=== PATIENT | female | born 1995 | race Caucasian/White ===

== ENCOUNTER 2019-11-16 08:51 | Inpatient (IN) | payer BC, OTHER ==
[2019-11-16] MEDS ORDERED: TERBUTALINE 1 MG/ML VIAL SQ PRN (09:18)
[2019-11-16] MEDS ORDERED: CARBOPROST TROMETHAMINE 250 MCG/ML 1 ML AMP IM PRN (09:18)
[2019-11-16] MEDS ORDERED: OXYTOCIN 10 UNIT/ML 1 ML VIAL IM PRN (09:18)
[2019-11-16] MEDS ORDERED: METHYLERGONOVINE 0.2 MG/ML 1 ML AMP IM PRN (09:18)
[2019-11-16] MEDS ORDERED: LIDOCAINE 0.5% (PF) 5 MG/ML (50 ML SDV) SQ PRN (09:18)
[2019-11-16] MEDS ORDERED: OXYTOCIN 30 UNITS/500 ML NS 30 UNIT in SALINE 1 500ML.BAG IV SCH (09:30)
[2019-11-16] MEDS: LACTATED RINGERS 1,000 ML IV SCH ×3 (09:41→18:21)
[2019-11-16 10:01] LABS: Basophils % (A) 0 %; Eosinophils # (A) 0.2 k/uL (0-0.7); Eosinophils % (A) 2 %; HCT 38.8 % (34.0-46.0); HGB 12.9 gm/dL (11.4-16.0); Lymphocytes # (A) 1.7 k/uL (1.0-4.8); Lymphocytes % (A) 18 %; MCH 29.7 pg (25.0-35.0); MCHC 33.2 g/dL (31.0-37.0); MCV 89.6 fL (80.0-100.0); Mean Platelet Volume 9.2; Monocytes # (A) 0.5 k/uL (0-1.0); Monocytes % (A) 5 %; Neutrophils # (A) 6.9 k/uL (1.3-7.7); Neutrophils % (A) 73 %; Platelet Count 168 k/uL (150-450); RBC 4.33 m/uL (3.80-5.40); RDW 13.7 % (11.5-15.5); WBC 9.4 k/uL (3.8-10.6)
[2019-11-16 10:10] LABS: Uric Acid 5.8 mg/dL (3.7-7.4)
[2019-11-16] MEDS ORDERED: BUTORPHANOL 1 MG/ML 1 ML VIAL IV PRN (10:25)
[2019-11-16] MEDS ORDERED: ROPIVACAINE 100 MG, fentaNYL (PF) 200 MCG in SODIUM CHLORIDE 0.9% 76 ML EPIDURAL ONE (12:08)
--- NOTE | 2019-11-16 13:28 | P.HPOB ---
History of Present Illness H&P Date: 11/16/19 Chief Complaint: My water broke at 5:00 this morning This is a 24-year-old female 1 para 0 EDC 11/13/2019 at 40-3/7 weeks' gestation. Patient states her water broke this morning at approximately 0500 hrs. Only mild irregular uterine contractions to follow. Fetus is been active throughout the . Social history patient is single, father of the baby is involved in the . She is a formerly draped, none with . She denies alcohol or drug use. Family history significant for bipolar disorder, diabetes, hypercholesterolemia and anxiety. ALLERGIES include amoxicillin to which reports an unknown reaction as an infant. Current medications vitamins daily. Surgical history is unremarkable. Past medical history significant for hypothyroidism and asthma, exercise- induced. history blood type is A+, rubella status immune. VDRL testing, hepatitis B surface antigen, HIV testing, urine culture, rupee strep cultures all negative. One-hour Glucola 99. Urine culture is positive for E. coli, treated with antibiotics and repeat culture negative. On exam she is 5 foot 7 inches, 241 pounds, blood pressure on admission 140s over 90s, now 100/50 after epidural. General physical exam is within normal limits. Membranes are obviously ruptured with thin meconium-stained fluid. Cervix is 4 cm dilated, 70% effaced, -2 station, vertex presentation. heart rate is consistent with reactive NST, baseline 140. Impression: 40-3/7 weeks intrauterine , early spontaneous labor. Thin meconium-stained fluid. All signs otherwise reassuring. Initial blood pressure high, with normalization noted. Normal labs. Plan: Continue oxytocin augmentation per hospital protocol. Continue close maternal and surveillance. Epidural placed per patient's request. Anticipate normal spontaneous vaginal delivery. Review of Systems Constitutional: Reports as per HPI Past Medical History Past Medical History: Asthma, Thyroid Disorder History of Any Multi-Drug Resistant Organisms: None Reported Past Surgical History: No Surgical Hx Reported Past Anesthesia/Blood Transfusion Reactions: No Reported Reaction Past Psychological History: Anxiety Smoking Status: Never smoker Past Alcohol Use History: None Reported Past Drug Use History: None Reported - Past Family History Mother Additional Family Medical History / Comment(s): bipolar, heart skips beat Father History Unknown: Yes Family Medical History: Hypertension Medications and Allergies Home Medications Medication Instructions Recorded Confirmed Type Levothyroxine Sodium [Synthroid] 25 mcg PO DAILY 11/16/19 11/16/19 History Pnv No.95/Ferrous Fum/Folic AC 1 each PO DAILY 11/16/19 11/16/19 History [ Multivitamin Tablet] Allergies Allergy/AdvReac Type Severity Reaction Status Date / Time No Known Allergies Allergy Verified 11/16/19 09:03 Exam Vital Signs Temp Pulse Resp BP 11/16/19 09:43 96.0 F L 93 18 143/92 11/16/19 09:20 96.0 F L 93 18 143/92 Intake and Output 11/15/19 11/16/19 11/16/19 22:59 06:59 14:59 Output Total 150 Balance -150 Output: Urine 150 Straight 150 Other: Weight 109.316 kg See dictation under HPI please Results Result Diagrams: 11/16/19 09:45 Assessment and Plan Assessment: 40-3/7 weeks intrauterine , early spontaneous labor. Thin meconium- stained fluid. All signs reassuring. Plan: Continue oxytocin augmentation per hospital protocol. Continue close maternal and surveillance. Anticipate normal spontaneous vaginal delivery. Time with Patient: Less than 30
[2019-11-16 13:36] LABS: Amorphous Sediment,Urine Rare /hpf; Appearance,Urine Cloudy (Clear); Bilirubin,Urine Negative (Negative); Blood,Urine Negative (Negative); Color,Urine Yellow; Glucose,Urine (UA) Negative (Negative); Ketones,Urine 1+ (Negative); Leukocyte Esterase,Urine Negative (Negative); Mucus,Urine Occasional /hpf; Nitrite,Urine Negative (Negative); PH, Urine 6.5 (5.0-8.0); Protein,Urine Trace (Negative); RBC,Urine 1 /hpf (0-5); Specific Gravity,Urine 1.025 (1.001-1.035); Squamous Epithelial Cell,Urine <1 /hpf (0-4); Urobilinogen,Urine <2.0 mg/dL (<2.0); WBC,Urine 4 /hpf (0-5)
[2019-11-16] MEDS ORDERED: PENICILLIN G POTASSIUM 5,000,000 UNIT in DEXTROSE 5% IN WATER 100 ML IVPB STA ×2 (18:07)
[2019-11-16] MEDS ORDERED: LANOLIN CREAM 5 GM TUBE TOPICAL PRN (19:47)
[2019-11-16] MEDS ORDERED: ACETAMINOPHEN TAB 325 MG TAB PO PRN (19:47)
[2019-11-16] MEDS ORDERED: WITCH HAZEL 1 EACH MED..PAD TOPICAL PRN (19:47)
[2019-11-16] MEDS ORDERED: HYDROCORTISONE 2.5% RECTAL CREAM 30 GM TUBE RECTAL PRN (19:47)
[2019-11-16] MEDS ORDERED: BENZOCAINE/MENTHOL SPRAY 1 GM/SPRAY AEROSOL TOPICAL PRN (19:47)
[2019-11-16] MEDS ORDERED: diphenhydrAMINE ELIXIR 25 MG/10 ML CUP PO PRN (19:47)
[2019-11-16] MEDS ORDERED: diphenhydrAMINE 25 MG CAP PO PRN (19:47)
[2019-11-16] MEDS ORDERED: SIMETHICONE 80 MG CHEWABLE PO PRN (19:47)
[2019-11-16] MEDS ORDERED: ZOLPIDEM 5 MG TAB PO PRN (19:47)
[2019-11-16] MEDS ORDERED: diphenhydrAMINE 50 MG/ML 1 ML VIAL IVP PRN ×2 (19:47)
[2019-11-16] MEDS ORDERED: diphenhydrAMINE 50 MG CAP PO PRN (19:47)
[2019-11-16] MEDS ORDERED: IBUPROFEN 600 MG TAB PO PRN (19:47)
--- NOTE | 2019-11-16 19:47 | P.PROBDLV ---
Vaginal Delivery Note - . Vaginal Delivery Note: This is a 24-year-old white female 1 para 0 EDC 11/13/2019 40-3/7 weeks' gestation. Patient presented with spontaneous amniorrhexis which occurred at home, light meconium-stained fluid. Fetus is been active throughout the . Please see dictated history and physical for details. Oxytocin augmentation was started and titrated per hospital protocol. Epidural was placed per her request. She went on to progress through the first stage of labor and became completely dilated at 1912 hrs. She began the second stage of labor at that time. heart rate was reassuring throughout the entire first and second stages of labor. Perineal body was prepped and draped in the usual sterile fashion. Infant's head delivered occiput anterior and she restituted accordingly. There was a nuchal cord 1 that was reduced on the perineal body. The left or anterior shoulder was gently delivered from underneath the pubic symphysis at which time the oropharynx, nasopharynx, and external nares were all bulb suctioned on the perineal body. Patient was officially delivered of a liveborn female infant at 1924 hours. Umbilical cord was doubly clamped and ligated, she was handed to waiting nurses for evaluation where scores of 9 and 9 at one and 5 minutes respectively were given. Infant weighed 7 lbs. 11 oz. or 3485 g. The placenta delivered spontaneously with active management, it was inspected and noted to be intact with trivascular cord at 1927 hours. The uterus is massaged. Careful inspection of the cervix, vagina, perineum, periurethral, and perirectal areas revealed a small midline first-degree laceration. This was repaired in the usual fashion using 3-0 Vicryl suture. All sponge needle and instrument counts are correct at the end of the procedure. Estimated blood loss 350 mL's. Patient and her family were allowed to begin the bonding experience in the LDR.
[2019-11-16] MEDS ORDERED: OXYTOCIN 20 UNITS/1000 ML NS 1,000 ML IV SCH (20:00)
[2019-11-16] MEDS ORDERED: PENICILLIN G POTASSIUM 2,500,000 UNIT in DEXTROSE 5% IN WATER 100 ML IVPB SCH ×2 (22:08)
[2019-11-17] MEDS: SENNOSIDES-DOCUSATE SODIUM 1 EACH TAB PO SCH ×2 (05:35→08:16)
--- NOTE | 2019-11-17 07:53 | P.DS ---
Providers Date of admission: 11/16/19 09:25 Expected date of discharge: 11/17/19 Attending physician: Teresita Simmons Primary care physician: Stated None Hospital Course: This is a 24-year-old female 1 para 0 EDC 11/13/2019 at 40-3/7 weeks' gestation. Patient presented to the hospital with spontaneous amniorrhexis which occurred at home, light meconium-stained fluid. is remarkable for blood type A positive, group B strep cultures negative, rubella status immune. Please see my dictated history and physical for details. Epidural was placed per patient's request. Oxytocin was started and titrated per hospital protocol. She went on to deliver vaginally a liveborn female infant with scores of 9 and 9 at one and 5 minutes respectively. weighed 7 lbs. 11 oz. or 3485 g. There was a small first-degree perineal laceration repaired easily. Estimated blood loss 350 mL's. There was a nuchal cord 1, please see my dictated delivery note for details. This morning the patient is doing well. She is voiding, ambulating and passing flatus without difficulty. Vital signs are stable and she is afebrile. Fundus is firm and in the midline, symmetric and 18 week size. Extremities are negative for edema. infant is doing well. Patient is judged to be in very good condition for discharge home later today. She will follow-up with me in the office in 6 weeks. I have reminded her no intercourse, tampons or douching. She will use [id number] Advil or Aleve, or Motrin as needed for pain. She will continue taking her vitamin daily. She will call with any fevers shakes or chills, foul smelling or copious lochia, with the passage of large blood clots, with any pain not alleviated by [id number] products, or indeed with any concerns. Breast-feeding is going well and she has a double electric breast pump at home. Valier will follow-up with lead net software developer as per recommendations. Briefly reviewed contraceptive options and we will discuss this further in the office as appropriate. Patient Condition at Discharge: Good Plan - Discharge Summary Discharge Rx Participant: No New Discharge Prescriptions: No Action Pnv No.95/Ferrous Fum/Folic AC [ Multivitamin Tablet] 1 each PO DAILY Levothyroxine Sodium [Synthroid] 25 mcg PO DAILY Discharge Medication List Levothyroxine Sodium [Synthroid] 25 mcg PO DAILY 11/16/19 [History] Pnv No.95/Ferrous Fum/Folic AC [ Multivitamin Tablet] 1 each PO DAILY 11/16/19 [History] Follow up Appointment(s)/Referral(s): Teresita Simmons MD [STAFF PHYSICIAN] - 6 Weeks
--- NOTE | 2019-11-17 08:05 | P.MSEPDOC ---
Presenting Problems - Arrival Data Date of Arrival on Unit: 11/16/19 Time of Arrival on Unit: 09:11 Mode of Transport: Ambulatory - Complaint OB-Reason for Admission/Chief Complaint: Rule Out SROM Comment: pt states had SROM around 0500 this am, has thick mec Medical History - Information : 1 Para: 0 Term: 0 : 0 Abortions: Spontaneous or Elective: 0 Number of Living Children: 0 - Gestational Age Gestational Age by SUSAN (wks/days): 40 Weeks and 3 Days Review of Systems - Review of Systems Constitutional: No problems Breast: No problems ENT: No problems Cardiovascular: No problems Respiratory: No problems Gastrointestinal: No problems Genitourinary: No problems Musculoskeletal: No problems Neurological: No problems Skin: No problems Vital Signs - Temperature Temperature: 97.6 F Temperature Source: Oral - Pulse Right Brachial Pulse Rate: 91 Pulse Assessment Method: Automatic Cuff - Respirations Respiratory Rate: 16 Oxygen Delivery Method: Room Air - Blood Pressure Right Arm Blood Pressure: 121/80 Blood Pressure Mean: 93 Blood Pressure Source: Automatic Cuff Medical Screen Scoring (Pre) - Cervical Exam Dilation: 1-3 cm = 1 Effacement: More than 50% = 2 Membranes: Ruptured = 3 - Uterine Contractions Frequency: > or = 36 weeks =2 Duration: N/A Intensity: N/A - Maternal Vital Signs Maternal Temperature: N/A Maternal Blood Pressure: N/A Signs of Preeclampsia: N/A Maternal Respirations: N/A - Maternal Trauma Maternal Trauma: N/A - Assessment - Baby A Baseline FHR: 130 Heart Rate - NICHD Category: Category I (Normal) = 0 NST: Reactive Position: N/A Station: N/A - Total Score - Baby A Total Score - Baby A: 8 - Total Score - Baby B Total Score - Baby B: 8 - Total Score - Baby C Total Score - Baby C: 8 - Level of Risk - Baby A Level of Risk - Baby A: Medium (6-9) - Level of Risk - Baby B Level of Risk - Baby B: Medium (6-9) - Level of Risk - Baby C Level of Risk - Baby C: Medium (6-9) Physician Notification (Pre) - Physician Notified Physician Notified Date: 11/16/19 Physician Notified Time: 09:11 New Order Received: Yes - Notification Comment Comment: admit pt for labor Disposition - Disposition OB Disposition: Admit, LDRP Suite I agree with the RN Medical Screening Exam: Yes Risk & Benefit of care provided described in d/c instruction: Yes Diagnosis: LOUSE-BORNE TYPHUS
[2019-11-17 16:19] VITALS: BP 119/73; PULSE 75; RESP 17; TEMP 98.1
== END 2019-11-17 20:00 | disposition home or self-care (01) | DRG 807 ==
LOC: FBPOP 08:51 → 4FBP 09:25
PROVIDERS: ADMIT Obstetrics & Gynecology; ATTEND Obstetrics & Gynecology
PROC: 00HU33Z Insertion of Infusion Device into Spinal Canal, Percutaneous Approach (ICD-10-PCS; principal; 2019-11-16)
PROC: 0HQ9XZZ Repair Perineum Skin, External Approach (ICD-10-PCS; principal; 2019-11-16)
PROC: 10E0XZZ Delivery of Products of Conception, External Approach (ICD-10-PCS; principal; 2019-11-16)
PROC: 3E0R3BZ Introduction of Anesthetic Agent into Spinal Canal, Percutaneous Approach (ICD-10-PCS; principal; 2019-11-16)
DX: O77.0 Labor and delivery complicated by meconium in amniotic fluid (principal); Z37.0 Single live birth; O69.81X0 Labor and delivery complicated by cord around neck, without compression, not applicable or unspecified; E03.9 Hypothyroidism, unspecified; F41.9 Anxiety disorder, unspecified; J45.909 Unspecified asthma, uncomplicated; O70.0 First degree perineal laceration during delivery; O99.284 Endocrine, nutritional and metabolic diseases complicating childbirth; O99.344 Other mental disorders complicating childbirth; O99.52 Diseases of the respiratory system complicating childbirth; Z3A.40 40 weeks gestation of pregnancy; Z79.890 Hormone replacement therapy; Z82.49 Family history of ischemic heart disease and other diseases of the circulatory system; Z83.3 Family history of diabetes mellitus; Z88.0 Allergy status to penicillin
CPT/HCPCS: 59025; 81001; 84112; 84450; 84460; 84550; 85025; 86850; 86900; 86901; 99213

== ENCOUNTER 2020-01-26 14:55 | Emergency (ER) | payer OTHER ==
--- NOTE | 2020-01-26 15:55 | ED ---
General Adult HPI - General Chief complaint: Urogenital Stated complaint: Post bleeding Time Seen by Provider: 01/26/20 15:11 Source: patient, RN notes reviewed Mode of arrival: ambulatory Limitations: no limitations - History of Present Illness Initial comments: 24-year-old female currently 9 weeks presents to the emergency department for vaginal bleeding. Patient states that she started have heavy vaginal bleeding earlier today. States that she is using a tampon every half hour. States that she called her [employer] and could not get through to her so called the office and they said to go to the emergency room. Patient did have a normal period last week but states that this feels different. She denies abdominal pain. Denies fevers.Patient has no other complaints at this time including shortness of breath, chest pain, abdominal pain, nausea or vomiting, headache, or visual changes. - Related Data Home Medications Medication Instructions Recorded Confirmed Levothyroxine Sodium [Synthroid] 25 mcg PO HS 11/16/19 01/26/20 Pnv No.95/Ferrous Fum/Folic AC 1 tab PO HS 11/16/19 01/26/20 [ Multivitamin Tablet] Allergies Allergy/AdvReac Type Severity Reaction Status Date / Time No Known Allergies Allergy Verified 01/26/20 16:29 Review of Systems ROS Statement: Those systems with pertinent positive or pertinent negative responses have been documented in the HPI. ROS Other: All systems not noted in ROS Statement are negative. Past Medical History Past Medical History: Asthma, Thyroid Disorder History of Any Multi-Drug Resistant Organisms: None Reported Past Surgical History: No Surgical Hx Reported Past Anesthesia/Blood Transfusion Reactions: No Reported Reaction Past Psychological History: Anxiety Smoking Status: Never smoker Past Alcohol Use History: None Reported Past Drug Use History: None Reported - Past Family History Mother Additional Family Medical History / Comment(s): bipolar, heart skips beat Father History Unknown: Yes Family Medical History: Hypertension General Exam Limitations: no limitations General appearance: alert, in no apparent distress Head exam: Present: atraumatic, normocephalic, normal inspection Eye exam: Present: normal appearance, PERRL, EOMI. Absent: scleral icterus, conjunctival injection, periorbital swelling ENT exam: Present: normal exam, mucous membranes moist Neck exam: Present: normal inspection, full ROM. Absent: tenderness, meningismus, lymphadenopathy Respiratory exam: Present: normal lung sounds bilaterally. Absent: respiratory distress, wheezes, rales, rhonchi, stridor Cardiovascular Exam: Present: regular rate, normal rhythm, normal heart sounds. Absent: systolic murmur, diastolic murmur, rubs, gallop, clicks GI/Abdominal exam: Present: soft, normal bowel sounds. Absent: distended, tenderness, guarding, rebound, rigid External exam: Present: normal external exam. Absent: erythema, swelling, lesions, lacerations, ecchymosis Speculum exam: Present: vaginal bleeding (minimal vaginal bleeding present). Absent: normal speculum exam, erythema, vaginal discharge, cervical discharge, foreign body, tissue, laceration By manual exam: Present: normal by manual exam. Absent: cervical motion tenderness, adnexal tenderness, adnexal mass, uterine enlargement, uterine tenderness Neurological exam: Present: alert Psychiatric exam: Present: normal affect, normal mood Course Vital Signs 01/26/20 01/26/20 15:04 17:12 Temperature 99.1 F 98.4 F Pulse Rate 93 74 Respiratory 18 16 Rate Blood Pressure 136/91 129/81 O2 Sat by Pulse 99 100 Oximetry Medical Decision Making - Medical Decision Making Vital are stable. Patient is not tachycardic. Blood pressure is normal. CBC CMP is unremarkable. Hemoglobin stable. Urinalysis does show red blood cells. Ultrasound shows prominence of the endometrial canal, correlate with the menstrual stage. Obvious retained products are not identified. She is feeling well on reevaluation. She states bleeding has slowed significantly. Patient will follow up with her [employer]. However I did talk with her about strict return parameters which she is agreeable to.Patient has no other complaints at this time including shortness of breath, chest pain, abdominal pain, nausea or vomiting, headache, or visual changes. - Lab Data Result diagrams: 01/26/20 15:46 01/26/20 15:46 Lab Results 01/26/20 01/26/20 01/26/20 Range/Units 15:46 15:46 15:46 WBC 5.6 (3.8-10.6) k/uL RBC 4.51 (3.80-5.40) m/uL Hgb 13.5 (11.4-16.0) gm/dL Hct 40.8 (34.0-46.0) % MCV 90.3 (80.0-100.0) fL MCH 29.9 (25.0-35.0) pg MCHC 33.1 (31.0-37.0) g/dL RDW 13.1 (11.5-15.5) % Plt Count 220 (150-450) k/uL Neutrophils % 58 % Lymphocytes % 32 % Monocytes % 5 % Eosinophils % 3 % Basophils % 0 % Neutrophils # 3.2 (1.3-7.7) k/uL Lymphocytes # 1.8 (1.0-4.8) k/uL Monocytes # 0.3 (0-1.0) k/uL Eosinophils # 0.2 (0-0.7) k/uL Basophils # 0.0 (0-0.2) k/uL PT 9.7 (9.0-12.0) sec INR 0.9 (<1.2) APTT 25.3 (22.0-30.0) sec Sodium (137-145) mmol/L Potassium (3.5-5.1) mmol/L Chloride (98-107) mmol/L Carbon Dioxide (22-30) mmol/L Anion Gap mmol/L BUN (7-17) mg/dL Creatinine (0.52-1.04) mg/dL Est GFR (CKD-EPI)AfAm (>60 ml/min/1.73 sqM) Est GFR (CKD-EPI)NonAf (>60 ml/min/1.73 sqM) Glucose (74-99) mg/dL Calcium (8.4-10.2) mg/dL Total Bilirubin (0.2-1.3) mg/dL AST (14-36) U/L ALT (4-34) U/L Alkaline Phosphatase (38-126) U/L Total Protein (6.3-8.2) g/dL Albumin (3.5-5.0) g/dL Urine Color Yellow Urine Appearance Clear (Clear) Urine pH 6.5 (5.0-8.0) Ur Specific [place] 1.021 (1.001-1.035) Urine Protein Negative (Negative) Urine Glucose (UA) Negative (Negative) Urine Ketones Negative (Negative) Urine Blood Moderate H (Negative) Urine Nitrite Negative (Negative) Urine Bilirubin Negative (Negative) Urine Urobilinogen <2.0 (<2.0) mg/dL Ur Leukocyte Esterase Negative (Negative) Urine RBC >182 H (0-5) /hpf Urine WBC 1 (0-5) /hpf Ur Squamous Epith Cells <1 (0-4) /hpf Blood Type Blood Type Recheck Bld Type Recheck Status Antibody Screen Spec Expiration Date 01/26/20 01/26/20 Range/Units 15:46 15:46 WBC (3.8-10.6) k/uL RBC (3.80-5.40) m/uL Hgb (11.4-16.0) gm/dL Hct (34.0-46.0) % MCV (80.0-100.0) fL MCH (25.0-35.0) pg MCHC (31.0-37.0) g/dL RDW (11.5-15.5) % Plt Count (150-450) k/uL Neutrophils % % Lymphocytes % % Monocytes % % Eosinophils % % Basophils % % Neutrophils # (1.3-7.7) k/uL Lymphocytes # (1.0-4.8) k/uL Monocytes # (0-1.0) k/uL Eosinophils # (0-0.7) k/uL Basophils # (0-0.2) k/uL PT (9.0-12.0) sec INR (<1.2) APTT (22.0-30.0) sec Sodium 139 (137-145) mmol/L Potassium 4.0 (3.5-5.1) mmol/L Chloride 104 (98-107) mmol/L Carbon Dioxide 25 (22-30) mmol/L Anion Gap 10 mmol/L BUN 13 (7-17) mg/dL Creatinine 0.75 (0.52-1.04) mg/dL Est GFR (CKD-EPI)AfAm >90 (>60 ml/min/1.73 sqM) Est GFR (CKD-EPI)NonAf >90 (>60 ml/min/1.73 sqM) Glucose 93 (74-99) mg/dL Calcium 9.7 (8.4-10.2) mg/dL Total Bilirubin 0.5 (0.2-1.3) mg/dL AST 35 (14-36) U/L ALT 29 (4-34) U/L Alkaline Phosphatase 91 (38-126) U/L Total Protein 7.9 (6.3-8.2) g/dL Albumin 4.6 (3.5-5.0) g/dL Urine Color Urine Appearance (Clear) Urine pH (5.0-8.0) Ur Specific [place] (1.001-1.035) Urine Protein (Negative) Urine Glucose (UA) (Negative) Urine Ketones (Negative) Urine Blood (Negative) Urine Nitrite (Negative) Urine Bilirubin (Negative) Urine Urobilinogen (<2.0) mg/dL Ur Leukocyte Esterase (Negative) Urine RBC (0-5) /hpf Urine WBC (0-5) /hpf Ur Squamous Epith Cells (0-4) /hpf Blood Type A Positive Blood Type Recheck A Pos Bld Type Recheck Status No Antibody Screen NEGATIVE Spec Expiration Date 01/29/2020 - 2345 Disposition Clinical Impression: Vaginal bleeding Disposition: HOME SELF-CARE Condition: Good Instructions (If sedation given, give patient instructions): Dysfunctional Uterine Bleeding (ED) Additional Instructions: Please follow-up with your [employer] in 1-2 days. If you're having worsening symptoms such as lightheadedness return to the emergency department. If bleeding worsens return to the emergency department as well as any other symptoms. Is patient prescribed a controlled substance at d/c from ED?: No Referrals: Teresita Simmons MD [STAFF PHYSICIAN] - 1-2 days Time of Disposition: 17:28
[2020-01-26 16:00] LABS: Basophils % (A) 0 %; Eosinophils # (A) 0.2 k/uL (0-0.7); Eosinophils % (A) 3 %; HCT 40.8 % (34.0-46.0); HGB 13.5 gm/dL (11.4-16.0); Lymphocytes # (A) 1.8 k/uL (1.0-4.8); Lymphocytes % (A) 32 %; MCH 29.9 pg (25.0-35.0); MCHC 33.1 g/dL (31.0-37.0); MCV 90.3 fL (80.0-100.0); Mean Platelet Volume 8.5; Monocytes # (A) 0.3 k/uL (0-1.0); Monocytes % (A) 5 %; Neutrophils # (A) 3.2 k/uL (1.3-7.7); Neutrophils % (A) 58 %; Platelet Count 220 k/uL (150-450); RBC 4.51 m/uL (3.80-5.40); RDW 13.1 % (11.5-15.5); WBC 5.6 k/uL (3.8-10.6)
[2020-01-26 16:05] LABS: Appearance,Urine Clear (Clear); Bilirubin,Urine Negative (Negative); Blood,Urine Moderate (Negative); Color,Urine Yellow; Glucose,Urine (UA) Negative (Negative); Ketones,Urine Negative (Negative); Leukocyte Esterase,Urine Negative (Negative); Nitrite,Urine Negative (Negative); PH, Urine 6.5 (5.0-8.0); Protein,Urine Negative (Negative); RBC,Urine >182 /hpf (0-5); Specific Gravity,Urine 1.021 (1.001-1.035); Squamous Epithelial Cell,Urine <1 /hpf (0-4); Urobilinogen,Urine <2.0 mg/dL (<2.0); WBC,Urine 1 /hpf (0-5)
[2020-01-26 16:10] LABS: ALT 29 U/L (4-34); AST 35 U/L (14-36); African American GFR (CKD) >90 (>60 ml/min/1.73 sqM); Albumin 4.6 g/dL (3.5-5.0); Alkaline Phosphatase 91 U/L (38-126); Anion Gap 10 mmol/L; Blood Urea Nitrogen 13 mg/dL (7-17); Calcium 9.7 mg/dL (8.4-10.2); Carbon Dioxide 25 mmol/L (22-30); Chloride 104 mmol/L (98-107); Glucose 93 mg/dL (74-99); INR 0.9 (<1.2); Non-African American GFR(CKD) >90 (>60 ml/min/1.73 sqM); Partial Thromboplastin Time 25.3 sec (22.0-30.0); Prothrombin Time 9.7 sec (9.0-12.0); Sodium 139 mmol/L (137-145); Total Bilirubin 0.5 mg/dL (0.2-1.3); Total Protein 7.9 g/dL (6.3-8.2)
--- NOTE | 2020-01-26 16:37 | US ---
EXAMINATION TYPE: US transvaginal DATE OF EXAM: 01/26/2020 COMPARISON: NONE CLINICAL HISTORY: pain. Post - vaginal delivery 9 weeks ago. Menses ended 4 days ago, starting bleeding today. Rule out retained products TECHNIQUE: Transvaginal (TV). Date of LMP: 01/18/20 EXAM MEASUREMENTS: Uterus: 10.0 x 4.1 x 4.8 cm Endometrial Stripe: 1.1 cm Right Ovary: 3.4 x 1.6 x 1.7 cm Left Ovary: 3.3 x 2.2 x 1.4 cm 1. Uterus: Anteverted 2. Endometrium: appears thickened for menstrual stage, no evidence of retained products 3. Right Ovary: follicles noted 4. Left Ovary: follicles noted Spectral, color and waveform doppler imaging shows good arterial and venous flow within the ovaries ; there is no evidence for ovarian torsion. 5. Bilateral Adnexa: appears wnl 6. Posterior cul-de-sac: trace amount of free fluid IMPRESSION: 1. Prominence of the endometrial canal. Correlate with the menstrual stage. Obvious retained products are not identified.
[2020-01-26 17:12] VITALS: BP 129/81; PULSE 74; RESP 16; TEMP 98.4
== END 2020-01-26 17:58 | disposition home or self-care (01) ==
LOC: EC 14:55
DX: N93.9 Abnormal uterine and vaginal bleeding, unspecified (principal); E07.9 Disorder of thyroid, unspecified; Z79.890 Hormone replacement therapy
CPT/HCPCS: 36415; 76830; 80053; 81001; 85025; 85610; 85730; 86850; 86900; 86901; 93975; 99284

== ENCOUNTER 2020-04-30 15:51 | Emergency (ER) | payer OTHER ==
--- NOTE | 2020-04-30 16:47 | XR ---
EXAMINATION TYPE: XR chest 1V portable DATE OF EXAM: 04/30/2020 COMPARISON: NONE HISTORY: Pain TECHNIQUE: Single view FINDINGS: Heart and mediastinum are normal. Lungs are clear. Diaphragm is normal. Bony thorax appears normal. IMPRESSION: Normal chest.
[2020-04-30 16:51] LABS: Appearance,Urine Clear (Clear); Bilirubin,Urine Negative (Negative); Blood,Urine Moderate (Negative); Color,Urine Light Yellow; Glucose,Urine (UA) Negative (Negative); Ketones,Urine Negative (Negative); Leukocyte Esterase,Urine Negative (Negative); Mucus,Urine Rare /hpf; Nitrite,Urine Negative (Negative); PH, Urine 5.5 (5.0-8.0); Protein,Urine Negative (Negative); Specific Gravity,Urine 1.012 (1.001-1.035); Squamous Epithelial Cell,Urine 1 /hpf (0-4); Urobilinogen,Urine <2.0 mg/dL (<2.0); WBC,Urine 1 /hpf (0-5)
--- NOTE | 2020-04-30 17:00 | ED ---
General Adult HPI - General Chief complaint: Recheck/Abnormal Lab/Rx Stated complaint: near syncope Time Seen by Provider: 04/30/20 16:00 Source: patient, RN notes reviewed Mode of arrival: ambulatory Limitations: no limitations - History of Present Illness Initial comments: 24-year-old female with a past medical history of asthma, thyroid disorder pres ents to the emergency room for a chief complaint of medication refill. Patient reports she has been out of her Synthroid for about a month. Reports that today she started to get lightheaded while she was driving and feels that she needs her Synthroid refilled. She usually does this through urgent care but they are closed today. Patient states she feels fine at this time seems to be only when she is driving. Patient denies any chest pain or shortness of breath. Denies any fevers. Denies neck pain.Patient has no other complaints at this time including shortness of breath, chest pain, abdominal pain, nausea or vomiting, headache, or visual changes. - Related Data Home Medications Medication Instructions Recorded Confirmed Levothyroxine Sodium [Synthroid] 25 mcg PO DAILY 11/16/19 04/30/20 Pnv No.95/Ferrous Fum/Folic AC 1 tab PO HS 11/16/19 01/26/20 [ Multivitamin Tablet] Previous Rx's Medication Instructions Recorded Levothyroxine Sodium [Synthroid] 25 mcg PO DAILY #7 tab 04/30/20 Allergies Allergy/AdvReac Type Severity Reaction Status Date / Time No Known Allergies Allergy Verified 04/30/20 15:53 Review of Systems ROS Statement: Those systems with pertinent positive or pertinent negative responses have been documented in the HPI. ROS Other: All systems not noted in ROS Statement are negative. Past Medical History Past Medical History: Asthma, Thyroid Disorder History of Any Multi-Drug Resistant Organisms: None Reported Past Surgical History: No Surgical Hx Reported Past Anesthesia/Blood Transfusion Reactions: No Reported Reaction Past Psychological History: Anxiety Smoking Status: Never smoker Past Alcohol Use History: None Reported Past Drug Use History: None Reported - Past Family History Mother Additional Family Medical History / Comment(s): bipolar, heart skips beat Father History Unknown: Yes Family Medical History: Hypertension General Exam Limitations: no limitations General appearance: alert Head exam: Present: atraumatic, normocephalic, normal inspection Eye exam: Present: normal appearance, PERRL, EOMI. Absent: scleral icterus, conjunctival injection, periorbital swelling ENT exam: Present: normal exam, mucous membranes moist Neck exam: Present: normal inspection, full ROM. Absent: tenderness, meningismus, lymphadenopathy Respiratory exam: Present: normal lung sounds bilaterally. Absent: respiratory distress, wheezes, rales, rhonchi, stridor Cardiovascular Exam: Present: regular rate, normal rhythm, normal heart sounds. Absent: systolic murmur, diastolic murmur, rubs, gallop, clicks GI/Abdominal exam: Present: soft, normal bowel sounds. Absent: distended, tenderness, guarding, rebound, rigid Neurological exam: Present: alert, oriented X3, CN II-XII intact, normal gait, other (GCS 15) Psychiatric exam: Present: normal affect, normal mood Course Vital Signs 04/30/20 04/30/20 15:53 17:57 Temperature 98.4 F 98.1 F Pulse Rate 82 80 Respiratory 18 16 Rate Blood Pressure 142/92 136/78 O2 Sat by Pulse 99 98 Oximetry EKG Findings - EKG Comments: EKG Findings:: Normal sinus rhythm, ventricular rate 66, WA interval 186, QTC 413 Medical Decision Making - Medical Decision Making Patient is a well appearing female. Her vitals are stable. Patient is able to ambulate without difficulty. Patient feels well at this time, does not feel presyncopal. I did obtain a urinalysis which showed blood which is consistent as patient is on her period. HCG is negative. Chest x-ray shows a normal chest. EKG shows a normal sinus rhythm with a ventricular rate of 66. Glucose of 90. At this point patient was given a week dose of her Synthroid. If she has any worsening symptoms she will return to the emergency department for lab work. Otherwise she will follow-up with her doctor. Patient was referred to primary care. - Lab Data Lab Results 04/30/20 04/30/20 04/30/20 Range/Units 16:31 16:31 17:50 POC Glucose (mg/dL) 90 (75-99) mg/dL POC Glu Cereal Miller ID Larry Alvarez Urine Color Light Yellow Urine Appearance Clear (Clear) Urine pH 5.5 (5.0-8.0) Ur Specific Reading 1.012 (1.001-1.035) Urine Protein Negative (Negative) Urine Glucose (UA) Negative (Negative) Urine Ketones Negative (Negative) Urine Blood Moderate H (Negative) Urine Nitrite Negative (Negative) Urine Bilirubin Negative (Negative) Urine Urobilinogen <2.0 (<2.0) mg/dL Ur Leukocyte Esterase Negative (Negative) Urine WBC 1 (0-5) /hpf Ur Squamous Epith Cells 1 (0-4) /hpf Urine Mucus Rare H (None) /hpf Urine HCG, Qual Not Detected (Not Detectd) Disposition Clinical Impression: Encounter for medication refill, Light headed Disposition: HOME SELF-CARE Condition: Good Instructions (If sedation given, give patient instructions): Near Syncope (ED) Additional Instructions: Please follow up with a primary care physician. If you have any worsening symptoms or feeling to her going to pass out again return to the emergency room. Prescriptions: Levothyroxine Sodium [Synthroid] 25 mcg PO DAILY #7 tab Is patient prescribed a controlled substance at d/c from ED?: No Referrals: Cholo Jain [STAFF PHYSICIAN] - 1-2 days Time of Disposition: 17:42
[2020-04-30 17:51] LABS: Glucose,Whole Blood 90 mg/dL (75-99)
[2020-04-30 17:58] VITALS: BP 136/78; PULSE 80; RESP 16; TEMP 98.1
== END 2020-04-30 17:56 | disposition home or self-care (01) ==
LOC: EC 15:51
DX: Z76.0 Encounter for issue of repeat prescription (principal); R42 Dizziness and giddiness; E07.9 Disorder of thyroid, unspecified; Z79.890 Hormone replacement therapy
CPT/HCPCS: 36415; 71045; 81001; 81025; 93005; 99283

== ENCOUNTER → 2023-12-18 | Outpatient (CLI) | payer OTHER ==
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
== END | disposition home or self-care (01) ==
LOC: RADMRIMAIN 12:17
PROVIDERS: ATTEND Ophthalmology
DX: G93.2 Benign intracranial hypertension (principal); R53.83 Other fatigue
CPT/HCPCS: 70551

== ENCOUNTER 2024-01-29 11:08 | Day surgery (SDC) | payer OTHER ==
[2024-01-29 11:54] VITALS: TEMP 97.2
[2024-01-29] MEDS: IV FLUID CONTINUATION 1,000 ML IV ONE ×3 (12:15→14:00)
[2024-01-29] MEDS: LACTATED RINGERS 1,000 ML IV SCH (12:16)
[2024-01-29] MEDS ORDERED: MIDAZOLAM 2 MG/2 ML VIAL ONE (12:53)
[2024-01-29] MEDS ORDERED: fentaNYL (PF) 50 MCG/ML 2 ML AMP ONE (12:53)
--- NOTE | 2024-01-29 13:18 | P.PCN ---
Date of Procedure: 01/29/24 Procedure(s) Performed: Preoperative diagnosis: Pseudotumor cerebri Post operative diagnoses: Pseudotumor cerebri Procedure= lumbar puncture Anesthesia= moderate sedation with Versed 2 mg , and fentanyl 100 g, local infiltration with lidocaine 1% 2 mL. Sedation start time : 12:53 Sedation end time : 13:12 Condition: stable Complication: none. Description of the procedure procedure risk and benefits discussed with the patient and family, consent signed. Patient and the procedure area placed in lateral position ( right side down ), back prepped with chlorhexidine 3 times been local infiltration of the skin and subcutaneous tissue with lidocaine 1% 2 mL for skin and subcu interstitial frustrations at L4 5 levels then 22-gauge Quincke-type needle advanced slowly at L4- 5 interlaminar space there was positive cerebrospinal fluid which was clear, no heme, no paresthesia ,total of 20 ML of clear cerebrospinal fluid collected in 4 different tubes , then the needle removed and a Band-Aid applied and patient tolerated the procedure well without any complications. Opening pressure=27 cm of water. Closing pressure =16 cm of water after removal of 20 mL of clear cerebrospinal fluid
[2024-01-29 14:08] LABS: Glucose,CSF 51 mg/dL (40-70); Total Protein,CSF 37 mg/dL (12-60)
[2024-01-29] MEDS: ONDANSETRON 4 MG/2 ML VIAL IVP STA (14:10)
[2024-01-29] MEDS ORDERED: ONDANSETRON 4 MG/2 ML VIAL IM STA (14:10)
[2024-01-29 14:37] VITALS: RESP 18
[2024-01-29 15:12] LABS: Appearance,CSF Clear; CSF Tube Number 4; Nucleated Cells, CSF 0 u/L (0-5); Red Blood Cell,CSF 0 u/L (0-10)
[2024-01-29 15:25] VITALS: BP 122/89; PULSE 81
== END 2024-01-29 15:31 | disposition home or self-care (01) ==
LOC: ORPAIN 11:08
PROVIDERS: ATTEND Specialist
DX: G93.2 Benign intracranial hypertension (principal)
CPT/HCPCS: 81025; 84157; 82945; 89050; 62270; 99152; J2250; J2405; J3010

== ENCOUNTER 2024-07-05 08:53 | Emergency (ER) | payer OTHER ==
[2024-07-05] MEDS: SODIUM CHLORIDE 0.9% 1,000 ML IV STA (10:01)
[2024-07-05] MEDS: PANTOPRAZOLE 40 MG/10 ML VIAL IVP STA (10:06)
[2024-07-05] MEDS: ONDANSETRON 4 MG/2 ML VIAL IVP STA (10:06)
[2024-07-05] MEDS: MORPHINE SULFATE 2 MG/ML SYRINGE IVP STA ×2 (10:12→13:16)
[2024-07-05 10:18] LABS: Basophils % (A) 0 %; Eosinophils # (A) 0.2 k/uL (0-0.7); Eosinophils % (A) 3 %; HCT 41.8 % (34.0-46.0); Hypochromasia Slight; Lymphocytes # (A) 1.4 k/uL (1.0-4.8); Lymphocytes % (A) 24 %; MCH 27.1 pg (25.0-35.0); MCHC 31.2 g/dL (31.0-37.0); MCV 86.8 fL (80.0-100.0); Mean Platelet Volume 8.5; Monocytes # (A) 0.2 k/uL (0-1.0); Monocytes % (A) 3 %; Neutrophils # (A) 3.9 k/uL (1.3-7.7); Neutrophils % (A) 68 %; Platelet Count 266 k/uL (150-450); RBC 4.82 m/uL (3.80-5.40); RDW 15.5 % (11.5-15.5); WBC 5.7 k/uL (3.8-10.6)
[2024-07-05 10:28] LABS: ALT 19 U/L (4-34); AST 31 U/L (14-36); African American GFR (CKD) 88 (>60 ml/min/1.73 sqM); Albumin 4.8 g/dL (3.5-5.0); Alkaline Phosphatase 65 U/L (38-126); Amylase 48 U/L (30-110); Anion Gap 11 mmol/L; Blood Urea Nitrogen 15 mg/dL (7-17); Calcium 9.5 mg/dL (8.4-10.2); Carbon Dioxide 20 mmol/L (22-30); Chloride 111 mmol/L (98-107); Glucose 74 mg/dL (74-99); INR 0.9 (<1.2); Lipase 174 U/L (23-300); Non-African American GFR(CKD) 76 (>60 ml/min/1.73 sqM); Partial Thromboplastin Time 25.2 sec (22.0-30.0); Potassium 3.8 mmol/L (3.5-5.1); Prothrombin Time 10.2 sec (10.0-12.5); Sodium 142 mmol/L (137-145); Total Bilirubin 0.4 mg/dL (0.2-1.3); Total Protein 8.1 g/dL (6.3-8.2)
[2024-07-05 11:07] LABS: HCG,Qualitative Serum Not Detected
[2024-07-05 11:30] LABS: Appearance,Urine Cloudy (Clear); Bilirubin,Urine Negative (Negative); Blood,Urine Negative (Negative); Color,Urine Colorless; Glucose,Urine (UA) Negative (Negative); Ketones,Urine Negative (Negative); Leukocyte Esterase,Urine Moderate (Negative); Nitrite,Urine Negative (Negative); PH, Urine 6.5 (5.0-8.0); Protein,Urine Negative (Negative); RBC,Urine 3 /hpf (0-5); Specific Gravity,Urine 1.009 (1.001-1.035); Squamous Epithelial Cell,Urine 8 /hpf (0-4); Urobilinogen,Urine <2.0 mg/dL (<2.0); WBC,Urine 6 /hpf (0-5)
--- NOTE | 2024-07-05 11:56 | CT ---
EXAMINATION TYPE: CT angio abdomen pelvis CT DLP: 787.7 mGycm, Automated exposure control for dose reduction was used. DATE OF EXAM: 07/05/2024 11:47 AM COMPARISON:Ultrasound transvaginal 01/26/2020 CLINICAL INDICATION:Female, 28 years old with history of abdominal pain; back pain and inguinal pain after urination starting today, h/o stage 2 renal disease TECHNIQUE: Multiple thin slice sub-millimeter images were obtained through the abdomen and pelvis aft er administration of contrast. Patient was given Isovue 370, 100 cc intravenously. 3-D reconstructe d images and maximum intensity projection images were obtained of the abdomen and pelvis arterial vas culature. FINDINGS: CTA Abdomen and pelvis: The abdominal aorta does not demonstrate aneurysmal dilatation. The origins of the superior mesenteric artery, renal arteries, inferior mesenteric artery, and celiac axis are p atent. There are 2 right renal arteries. The iliac vessels are normal in morphology. VISCERA: The liver, spleen, adrenal glands, kidneys, pancreas, and gallbladder are not optimally enha nced due the arterial phase utilized. LIVER: Unremarkable GALLBLADDER AND BILE DUCTS: Unremarkable. PANCREAS: Unremarkable. SPLEEN: Unremarkable. ADRENAL GLANDS: Unremarkable. KIDNEYS AND URETERS: No evidence of hydronephrosis or renal calculus. The kidneys enhance symmetrical ly. PELVIS BLADDER: Unremarkable REPRODUCTIVE: Unremarkable. ABDOMEN & PELVIS STOMACH AND BOWEL: Stomach and duodenum are unremarkable. No focal bowel wall thickening or surroundi ng inflammatory changes. The appendix is within normal limits. No hyperdense material identified with in the bowel. No evidence of bowel obstruction. PERITONEUM: No evidence of pneumoperitoneum. Trace free fluid in the pelvis which is likely physiolog ic. VASCULATURE: No evidence of aortic aneurysm. MUSCULOSKELETAL: No acute osseous abnormalities LYMPH NODES: No evidence for lymphadenopathy. SOFT TISSUE/ABDOMINAL WALL: Tiny fat filled umbilical hernia. IMPRESSION 1. No CTA evidence for acute abdominal/pelvic process. [facility], , 07/05/2024 11:53 AM
--- NOTE | 2024-07-05 13:31 | US ---
EXAMINATION TYPE: US transvaginal DATE OF EXAM: 07/05/2024 COMPARISON: NONE CLINICAL INDICATION: Female, 28 years old with history of abd pain, eval for ovarian torsion; Pain TECHNIQUE: Transvaginal (TV). FINDINGS: EXAM MEASUREMENTS: Uterus: 9.5 x 4.5 x 4.3 cm Endometrial Stripe: 1.1 cm Right Ovary: Obscured by bowel gas. Left Ovary: 4.4 x 3.0 x 2.6 cm 1. Uterus: Anteverted wnl 2. Endometrium: wnl 3. Right Ovary: Obscured by overlying bowel gas 4. Left Ovary: Follicle seen. Spectral, color and waveform doppler imaging shows good arterial and venous flow within the left ov michael; there is no evidence for ovarian torsion. 5. Bilateral Adnexa: wnl 6. Posterior cul-de-sac: wnl IMPRESSION: 1. Appropriate venous waveforms to the left ovary. Arterial waveforms are poorly visualized probably due to imaging technique. 2. The right ovary is not visualized. [facility], , 07/05/2024 1:29 PM
--- NOTE | 2024-07-05 14:43 | ED ---
General Adult HPI - General Chief complaint: Abdominal Pain Stated complaint: Abd pain Time Seen by Provider: 07/05/24 09:05 Source: patient, RN notes reviewed, old records reviewed Mode of arrival: ambulatory Limitations: no limitations - History of Present Illness Initial comments: Patient is a 28-year-old female presents emergency department complaining of abdominal pain. Was sudden onset while she was having a bowel movement states it was located near her rectum and then had suprapubic abdominal discomfort as well as back pain. It was excruciating. States he had a normal bowel movement. Patient has a history of possible lupus as well as asthma and thyroid disorder. Denies vaginal discharge or bleeding. Denies any urinary complaints. Denies chest pain or shortness of breath. Denies any fevers. Presents for further evaluation at this time. - Related Data Home Medications Medication Instructions Recorded Confirmed Cholecalciferol (Vitamin D3) 1,250 mcg PO Q30D 01/28/24 07/05/24 [Vitamin D3 (1250 Mcg = 50,000 Iu)] Venlafaxine HCl [Effexor XR] 37.5 mg PO DAILY 01/28/24 07/05/24 Levothyroxine Sodium [Synthroid] 175 mcg PO DAILY 07/05/24 07/05/24 Semaglutide [Wegovy] 1.7 mg SQ SA 07/05/24 07/05/24 acetaZOLAMIDE [Diamox] 250 mg PO DAILY 07/05/24 07/05/24 Allergies Allergy/AdvReac Type Severity Reaction Status Date / Time No Known Allergies Allergy Verified 07/05/24 15:03 Review of Systems ROS Statement: Those systems with pertinent positive or pertinent negative responses have been documented in the HPI. Review of Systems: CONST: Denies fever EYES: Denies blurry vision ENT: Denies nasal congestion C/V: Denies Chest pain RESP: Denies shortness of breath GI: Endorses abdominal pain : Denies dysuria SKIN: Denies rash. MSK: Denies joint pain. NEURO: Denies headache ROS Other: All systems not noted in ROS Statement are negative. 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 History of Any Multi-Drug Resistant Organisms: None Reported Past Surgical History: No Surgical Hx Reported Additional Past Surgical History / Comment(s): epidural with deliveries. Past Anesthesia/Blood Transfusion Reactions: No Reported Reaction Additional Past Anesthesia/Blood Transfusion Reaction / Comment(s): no hx of sedation Past Psychological History: Anxiety Smoking Status: Vaper Past Alcohol Use History: Occasional Past Drug Use History: Marijuana - Past Family History Mother Family Medical History: Osteoarthritis (OA) Additional Family Medical History / Comment(s): bipolar, heart skips beat, schizophrenia. maternal grandmother blood clot to leg Father History Unknown: Yes Family Medical History: Hypertension General Exam - General Exam Comments Initial Comments: General: Appears in mild distress secondary to abdominal pain. HEAD: Normal with no signs of head trauma. EYES: PERRLA, EOMI, conjunctiva normal, no discharge. ENT: Hearing grossly intact, normal oropharynx. RESPIRATORY: Clear breath sounds bilaterally. No wheezes, rales, or rhonchi. C/V: Regular rate and rhythm. S1 and S2 auscultated, no edema, peripheral pulses 2+ and intact throughout ABD: Abdomen soft, nondistended. Tender palpation in the lower quadrants. No guarding or rebound tenderness. No peritoneal signs. No significant back tenderness to palpation at this time. EXT: Normal range of motion, no obvious deformity SKIN: No rashes or lesions observed on exposed skin. NEURO: Alert and oriented x 4. Limitations: no limitations Course Vital Signs 07/05/24 07/05/24 07/05/24 08:54 09:07 10:37 Temperature 97.9 F 98.7 F Pulse Rate 138 H 95 75 Respiratory 22 19 16 Rate Blood Pressure 163/121 142/97 121/80 O2 Sat by Pulse 99 97 99 Oximetry 07/05/24 07/05/24 07/05/24 11:25 13:19 15:00 Temperature 98.8 F Pulse Rate 77 79 72 Respiratory 16 20 16 Rate Blood Pressure 163/99 119/74 112/78 O2 Sat by Pulse 99 100 99 Oximetry Medical Decision Making - Medical Decision Making Was pt. sent in by a medical professional or institution (, PA, BACK TENDER PAPER MACHINE, urgent care, hospital, or detention...) When possible be specific @ -No Did you speak to anyone other than the patient for history (EMS, parent, family, police, friend...)? What history was obtained from this source @ -No Did you review nursing and triage notes (agree or disagree)? Why? @ -I reviewed and agree with nursing and triage notes Were old charts reviewed (outside hosp., previous admission, EMS record, old EKG, old radiological studies, urgent care reports/EKG's, detention records)? Report findings @ -No old charts were reviewed Differential Diagnosis (chest pain, altered mental status, abdominal pain women, abdominal pain men, vaginal bleeding, weakness, fever, dyspnea, syncope, head ache, dizziness, GI bleed, back pain, seizure, CVA, palpatations, mental health, musculoskeletal)? @ -Differential Abdominal Pain Women: Appendicitis, Cholecystitis, diverticulosis, ischemic bowel, pancreatitis, hepatitis, UTI, gastroenteritis, AAA, incarcerated hernia, bowel obstruction, constipation, inflammatory bowel, hepatitis, peptic ulcer disease, splenic infarction, perforated viscus, vulvitis, ovarian torsion, PID, kidney stone, placenta abruption, this is not meant to be an all-inclusive list EKG interpreted by me (3pts min.). @ -As above X-rays interpreted by me (1pt min.). @ -None done CT interpreted by me (1pt min.). @ -Abdomen pelvis CTA negative for any obvious acute intra-abdominal or pelvic process. U/S interpreted by me (1pt. min.). @ -Transvaginal ultrasound negative for any obvious acute process. Difficult to visualize the right ovary however patient has no enlarged ovary that is obvious. What testing was considered but not performed or refused? (CT, X-rays, U/S, labs)? Why? @ -None What meds were considered but not given or refused? Why? @ -None Did you discuss the management of the patient with other professionals (professionals i.e. , PA, BACK TENDER P[employer]ER MACHINE, lab, RT, psych nurse, social work assistant, assistant general manager, teacher, building drafting officer, medical case worker)? Give summary @ -No Was smoking cessation discussed for >3mins.? @ -No Was critical care preformed (if so, how long)? @ -No Were there social determinants of health that impacted care today? How? (Homelessness, low income, unemployed, alcoholism, drug addiction, transportation, low edu. Level, literacy, decrease access to med. care, long term, rehab)? @ -No Was there de-escalation of care discussed even if they declined (Discuss DNR or withdrawal of care, Hospice)? DNR status @ -No What co-morbidities impacted this encounter? (DM, HTN, Smoking, COPD, CAD, Cancer, CVA, ARF, Chemo, Hep., AIDS, mental health diagnosis, sleep apnea, morbid obesity)? @ -None Was patient admitted / discharged? Hospital course, mention meds given and route, prescriptions, significant lab abnormalities, going to OR and other pertinent info. @ -Patient presents with abdominal pain of unknown etiology. We will obtain CT angiogram of the abdomen pelvis as well as abdominal labs as well as ultrasound. Patient was in agreement this plan. Patient symptomatically treated with IV analgesia medications, fluids, Zofran. She was in agreement this plan. Screening EKG shows no signs of acute ischemia. Laboratory studies are all w ithin acceptable limits including a normal lactic acid as well as patient being not . Urine is a contaminated catch. CT imaging unremarkable. Ultrasound unremarkable. Discussed results with the patient. She expressed understanding. She will be discharged home at this time as she is feeling improved and we have no clear etiology for her abdominal pain. Recommended close follow-up in 1 to 3 days with PCP. She was in agreement this plan. I instructed the patient to follow up with their PCP in the next 1-3 days. I explained that the patient should return to the emergency department if they experience any worsening symptoms. Strict return precautions were discussed with the patient. The patient expressed understanding of these instructions. I answered all questions that the patient had. The patient was discharged home in good condition with their prescriptions and follow up information. Undiagnosed new problem with uncertain prognosis? @ -No Drug Therapy requiring intensive monitoring for toxicity (Heparin, Nitro, Insulin, Cardizem)? @ -No Were any procedures done? @ -No Diagnosis/symptom? @ -Abdominal pain of unknown etiology Acute, or Chronic, or Acute on Chronic? @ -Acute Uncomplicated (without systemic symptoms) or Complicated (systemic symptoms)? @ -Complicated Side effects of treatment? @ -No Exacerbation, Progression, or Severe Exacerbation? @ -No Poses a threat to life or bodily function? How? (Chest pain, USA, MS, pneumonia, PE, COPD, DKA, ARF, appy, cholecystitis, CVA, Diverticulitis, Homicidal, Suicidal, threat to staff... and all critical care pts) @ -Unlikely - Lab Data Result diagrams: 07/05/24 10:03 07/05/24 10:03 Lab Results 07/05/24 07/05/24 07/05/24 Range/Units 10:03 10:03 10:03 WBC 5.7 (3.8-10.6) k/uL RBC 4.82 (3.80-5.40) m/uL Hgb 13.0 (11.4-16.0) gm/dL Hct 41.8 (34.0-46.0) % MCV 86.8 (80.0-100.0) fL MCH 27.1 (25.0-35.0) pg MCHC 31.2 (31.0-37.0) g/dL RDW 15.5 (11.5-15.5) % Plt Count 266 (150-450) k/uL MPV 8.5 Neutrophils % 68 % Lymphocytes % 24 % Monocytes % 3 % Eosinophils % 3 % Basophils % 0 % Neutrophils # 3.9 (1.3-7.7) k/uL Lymphocytes # 1.4 (1.0-4.8) k/uL Monocytes # 0.2 (0-1.0) k/uL Eosinophils # 0.2 (0-0.7) k/uL Basophils # 0.0 (0-0.2) k/uL Hypochromasia Slight PT 10.2 (10.0-12.5) sec INR 0.9 (<1.2) APTT 25.2 (22.0-30.0) sec Sodium 142 (137-145) mmol/L Potassium 3.8 (3.5-5.1) mmol/L Chloride 111 H (98-107) mmol/L Carbon Dioxide 20 L (22-30) mmol/L Anion Gap 11 mmol/L BUN 15 (7-17) mg/dL Creatinine 1.01 (0.52-1.04) mg/dL Est GFR (CKD-EPI)AfAm 88 (>60 ml/min/1.73 sqM) Est GFR (CKD-EPI)NonAf 76 (>60 ml/min/1.73 sqM) Glucose 74 (74-99) mg/dL Plasma Lactic Acid Julio (0.7-2.0) mmol/L Calcium 9.5 (8.4-10.2) mg/dL Total Bilirubin 0.4 (0.2-1.3) mg/dL AST 31 (14-36) U/L ALT 19 (4-34) U/L Alkaline Phosphatase 65 (38-126) U/L Total Protein 8.1 (6.3-8.2) g/dL Albumin 4.8 (3.5-5.0) g/dL Amylase 48 (30-110) U/L Lipase 174 (23-300) U/L HCG, Qual Not Detected Urine Color Urine Appearance (Clear) Urine pH (5.0-8.0) Ur Specific [place] (1.001-1.035) Urine Protein (Negative) Urine Glucose (UA) (Negative) Urine Ketones (Negative) Urine Blood (Negative) Urine Nitrite (Negative) Urine Bilirubin (Negative) Urine Urobilinogen (<2.0) mg/dL Ur Leukocyte Esterase (Negative) Urine RBC (0-5) /hpf Urine WBC (0-5) /hpf Ur Squamous Epith Cells (0-4) /hpf 07/05/24 07/05/24 Range/Units 10:03 10:03 WBC (3.8-10.6) k/uL RBC (3.80-5.40) m/uL Hgb (11.4-16.0) gm/dL Hct (34.0-46.0) % MCV (80.0-100.0) fL MCH (25.0-35.0) pg MCHC (31.0-37.0) g/dL RDW (11.5-15.5) % Plt Count (150-450) k/uL MPV Neutrophils % % Lymphocytes % % Monocytes % % Eosinophils % % Basophils % % Neutrophils # (1.3-7.7) k/uL Lymphocytes # (1.0-4.8) k/uL Monocytes # (0-1.0) k/uL Eosinophils # (0-0.7) k/uL Basophils # (0-0.2) k/uL Hypochromasia PT (10.0-12.5) sec INR (<1.2) APTT (22.0-30.0) sec Sodium (137-145) mmol/L Potassium (3.5-5.1) mmol/L Chloride (98-107) mmol/L Carbon Dioxide (22-30) mmol/L Anion Gap mmol/L BUN (7-17) mg/dL Creatinine (0.52-1.04) mg/dL Est GFR (CKD-EPI)AfAm (>60 ml/min/1.73 sqM) Est GFR (CKD-EPI)NonAf (>60 ml/min/1.73 sqM) Glucose (74-99) mg/dL Plasma Lactic Acid Julio 1.1 (0.7-2.0) mmol/L Calcium (8.4-10.2) mg/dL Total Bilirubin (0.2-1.3) mg/dL AST (14-36) U/L ALT (4-34) U/L Alkaline Phosphatase (38-126) U/L Total Protein (6.3-8.2) g/dL Albumin (3.5-5.0) g/dL Amylase (30-110) U/L Lipase (23-300) U/L HCG, Qual Urine Color Colorless Urine Appearance Cloudy H (Clear) Urine pH 6.5 (5.0-8.0) Ur Specific [place] 1.009 (1.001-1.035) Urine Protein Negative (Negative) Urine Glucose (UA) Negative (Negative) Urine Ketones Negative (Negative) Urine Blood Negative (Negative) Urine Nitrite Negative (Negative) Urine Bilirubin Negative (Negative) Urine Urobilinogen <2.0 (<2.0) mg/dL Ur Leukocyte Esterase Moderate H (Negative) Urine RBC 3 (0-5) /hpf Urine WBC 6 H (0-5) /hpf Ur Squamous Epith Cells 8 H (0-4) /hpf - EKG Data -: EKG Interpreted by Me EKG Comments: 12-lead Electrocardiogram Interpretation Note EKG was reviewed and interpreted by myself. 12-lead ECG performed at 0924 is interpreted by me as revealing normal sinus rhythm at a rate of 79 beats per minute. [place] is normal. MA interval is 174 ms, QRS duration is 88 ms, QTc is 402 ms.. There were no ST or T wave abnormalities to suggest myocardial ischemia or injury. R wave progression across the precordium was satisfactory. By my interpretation this EKG is non-diagnostic for acute ischemia. Disposition Clinical Impression: Abdominal pain of unknown etiology Disposition: HOME SELF-CARE Condition: Good Instructions (If sedation given, give patient instructions): Abdominal Pain (ED) Additional Instructions: Follow up with your PCP regarding abd pain. Please return if any worsening symptoms. Is patient prescribed a controlled substance at d/c from ED?: No Referrals: Emiliano Segovia MD [Primary Care Provider] - 1-2 days Time of Disposition: 14:30
[2024-07-05 15:02] VITALS: BP 112/78; PULSE 72; RESP 16; TEMP 98.8
== END 2024-07-05 15:02 | disposition home or self-care (01) ==
LOC: EC 08:53
DX: R10.30 Lower abdominal pain, unspecified (principal); F17.290 Nicotine dependence, other tobacco product, uncomplicated
CPT/HCPCS: 36415; 93005; 80053; 82150; 83605; 83690; 85025; 85610; 85730; 81001; 84703; 93976; 76830; 74174; 99285; 96374; 96375 ×2; 96376; J2405; J2270; Q9967; J2470